=== PATIENT | female | born 1975 | race American Indian/Alaskan Native ===

== ENCOUNTER 2016-08-23 06:32 | Emergency (ER) | payer SELFPAY ==
[2016-08-23] MEDS ORDERED: TORADOL IM ONE (11:40)
[2016-08-23] MEDS ORDERED: NORCO 7.5/325 PO ONE (11:40)
[2016-08-23] MEDS ORDERED: ULTRAM PO ONE (11:54)
--- NOTE | 2016-08-23 12:09 | Emergency Department Report ---
ED ENT HPI - General Chief complaint: Sore Throat Stated complaint: R SIDE FACIAL PAIN Source: patient Mode of arrival: Ambulatory Limitations: No Limitations - History of Present Illness Initial comments: 40 year old female presents to ED with right sided throat pain [id number] that resolved then began again 2 days ago. patient states she has had pain with swallowing. patient is stable, neurologically intact and in no acute distress. MD complaint: sore throat, difficulty swallowing -: Gradual Location: throat Severity: mild Quality: sharp Consistency: constant Worsens with: swallowing Associated Symptoms: pain with swallowing, sore throat. denies: fever, cough - Related Data Previous Rx's Medication Instructions Recorded Last Taken Type Ketorolac [Toradol] 10 mg PO Q6H PRN #20 tablet 08/23/16 Unknown Rx methOCARBAMOL [Robaxin TAB] 500 mg PO BID #20 tab 08/23/16 Unknown Rx Allergies Allergy/AdvReac Type Severity Reaction Status Date / Time No Known Allergies Allergy Unverified 08/23/16 07:40 ED Dental HPI - General Chief complaint: Sore Throat Stated complaint: L SIDE FACIAL PAIN Source: patient Mode of arrival: Ambulatory Limitations: No Limitations - Related Data Previous Rx's Medication Instructions Recorded Last Taken Type Ketorolac [Toradol] 10 mg PO Q6H PRN #20 tablet 08/23/16 Unknown Rx methOCARBAMOL [Robaxin TAB] 500 mg PO BID #20 tab 08/23/16 Unknown Rx Allergies Allergy/AdvReac Type Severity Reaction Status Date / Time No Known Allergies Allergy Unverified 08/23/16 07:40 ED Review of Systems ROS: Stated complaint: L SIDE FACIAL PAIN Other details as noted in HPI Constitutional: denies: chills, fever Eyes: denies: eye pain, eye discharge, vision change ENT: throat pain. denies: ear pain, dental pain, hearing loss, epistaxis, congestion Respiratory: denies: cough, shortness of breath, wheezing Cardiovascular: denies: chest pain, palpitations Endocrine: no symptoms reported Gastrointestinal: denies: abdominal pain, nausea, diarrhea Genitourinary: denies: urgency, dysuria, discharge Musculoskeletal: denies: back pain, joint swelling, arthralgia Skin: denies: rash, lesions Neurological: denies: headache, weakness, paresthesias Psychiatric: denies: anxiety, depression Hematological/Lymphatic: denies: easy bleeding, easy bruising ED Past Medical Hx - Past Medical History Previous Medical History?: Yes Hx Arthritis: Yes (rheumatoid) Additional medical history: anemia, States she has Lupas but don't know for sure - Surgical History Past Surgical History?: Yes Additional Surgical History: abd surgery - Social History Smoking Status: Current Every Day Smoker Substance Use Type: Alcohol, Prescribed - Medications Home Medications: Home Medications Medication Instructions Recorded Confirmed Last Taken Type Ketorolac [Toradol] 10 mg PO Q6H PRN #20 tablet 08/23/16 Unknown Rx methOCARBAMOL [Robaxin TAB] 500 mg PO BID #20 tab 08/23/16 Unknown Rx ED Physical Exam - General Limitations: No Limitations General appearance: alert, in no apparent distress - Head Head exam: Present: atraumatic, normocephalic - Eye Eye exam: Present: normal appearance - ENT ENT exam: Present: normal exam, mucous membranes moist, TM's normal bilaterally , other (no exudates present in throat, no tonsilar swelling present. normal tongue, no swelling present) - Neck Neck exam: Present: normal inspection, tenderness (tenderness to palpation of right anterior cervical lymph nodes). Absent: lymphadenopathy - Respiratory Respiratory exam: Present: normal lung sounds bilaterally. Absent: respiratory distress - Cardiovascular Cardiovascular Exam: Present: regular rate, normal rhythm. Absent: systolic murmur, diastolic murmur, rubs, gallop - GI/Abdominal GI/Abdominal exam: Present: soft, normal bowel sounds. Absent: tenderness, guarding - Extremities Exam Extremities exam: Present: normal inspection, full ROM - Back Exam Back exam: Present: normal inspection - Neurological Exam Neurological exam: Present: alert, oriented X3, normal gait - Psychiatric Psychiatric exam: Present: normal affect, normal mood - Skin Skin exam: Present: warm, dry, intact, normal color. Absent: rash ED Course Vital Signs 08/23/16 07:41 Temperature 98.1 F Pulse Rate 73 Respiratory 18 Rate Blood Pressure 139/85 O2 Sat by Pulse 100 Oximetry ED Medical Decision Making - Lab Data Laboratory Results - last 24 hr 08/23/16 10:25 Urine HCG, Qual Negative Negative rapid strep in ED - Medical Decision Making 40 year old female presents with sore throat and negative rapid strep in ED. patient understands she will be called or may return to medical records for results of strep culture. patient has decreased pain after medication. patient is stable, neurologically intact and in no acute distress. patient not given norco or tramadol due to not having designated tank truck driver present. Critical care attestation.: If time is entered above; I have spent that time in minutes in the direct care of this critically ill patient, excluding procedure time. ED Disposition Clinical Impression: Viral pharyngitis Disposition: DISCHARGED TO HOME OR SELFCARE Is pt being admited?: No Does the pt Need Aspirin: No Condition: Stable Prescriptions: Ketorolac [Toradol] 10 mg PO Q6H PRN #20 tablet PRN Reason: Pain methOCARBAMOL [Robaxin TAB] 500 mg PO BID #20 tab Referrals: PRIMARY CARE, [Primary Care Provider] - 3-5 Days Forms: Work/School Release Form(ED)
[2016-08-23 12:58] VITALS: BP 130/91
== END 2016-08-23 12:57 | disposition home or self-care (01) ==
LOC: ED 06:32
DX: J02.9 Acute pharyngitis, unspecified (principal); M06.9 Rheumatoid arthritis, unspecified; F17.200 Nicotine dependence, unspecified, uncomplicated
CPT/HCPCS: 81025; 87116; 87430; 96372; 99282; J1885

== ENCOUNTER 2017-07-12 13:39 | Outpatient (CLI) | payer OTHER ==
--- NOTE | 2017-07-12 15:24 | Magnetic Resonance Report ---
MRI LUMBAR SPINE WITHOUT CONTRAST HISTORY: Back pain. TECHNIQUE: axial T1, T2. sagittal T1,T2, STIR. COMPARISON: None. FINDINGS: The conus terminates at L1. No signal abnormality or mass. The cauda equina is within normal limits. No central canal stenosis. Normal height and alignment of the lumbar vertebra. The facet joints are in appropriate relationship. Normal bone marrow signal. No acute fracture or suspicious bone lesion. The disc spaces are normal height. Mild diffuse arthritic changes are noted in the facet joints. L1-2: No significant abnormality. L2-3: No significant abnormality. L3-4: No significant abnormality. L4-5: No significant abnormality. L5-S1: No significant abnormality. IMPRESSION: Mild diffuse facet arthropathy is identified throughout the lumbar region. No significant degenerative disc disease. No fracture, malalignment or herniation.
== END 2017-07-12 13:40 | disposition home or self-care (01) ==
LOC: MRI 13:39
DX: M47.896 Other spondylosis, lumbar region (principal); M12.88 Other specific arthropathies, not elsewhere classified, other specified site; S96.912D Strain of unspecified muscle and tendon at ankle and foot level, left foot, subsequent encounter; X58.XXXD Exposure to other specified factors, subsequent encounter
CPT/HCPCS: 72148

== ENCOUNTER 2021-04-15 08:14 | Outpatient (CLI) | payer BC ==
[2021-04-15] MEDS ORDERED: LIDOCAINE (4%) 40 MG/ML TOPICAL SOLN 50 ML BOTTLE TP ONE (08:27)
== END 2021-04-15 08:15 | disposition home or self-care (01) ==
LOC: WOUND 08:14
PROVIDERS: ATTEND Surgery
DX: T81.89XA Other complications of procedures, not elsewhere classified, initial encounter (principal); S21.002A Unspecified open wound of left breast, initial encounter; I10 Essential (primary) hypertension; Z87.891 Personal history of nicotine dependence; Y83.8 Other surgical procedures as the cause of abnormal reaction of the patient, or of later complication, without mention of misadventure at the time of the procedure; Y92.238 Other place in hospital as the place of occurrence of the external cause; X58.XXXA Exposure to other specified factors, initial encounter; Y93.89 Activity, other specified; Y92.89 Other specified places as the place of occurrence of the external cause; Y99.8 Other external cause status
CPT/HCPCS: 11042; G0463; 99204